=== PATIENT | male | born 1985 | race Caucasian/White ===

== ENCOUNTER 2018-10-25 23:13 | Emergency (ER) | payer SELFPAY ==
[~2018-10-25] VITALS: Ht 185.4 cm; Wt 81.6 kg
[2018-10-25 23:16] VITALS: BP 125/86
--- NOTE | 2018-10-25 23:17 | NUR ---
PT SHAWN ALS. TAKEN TO BED 10
--- NOTE | 2018-10-25 23:34 | NUR ---
PT MOVED TO [facility] TO WAIT FOR AVAIABLE BED. PT UNCOOPERATIVE, REFUSING TO ANSWER QUESTIONS. PT REMOVING LEADS AND MONITORING EQUIPMENT. PT SAT UP FROM BED AND STOOD INTO W/C. PT REQUESTING WE CALL [facility] TO PICK HIM UP. FAMILY CALLED TO CHECK ON PATIENT AND LEFT PHONE NUMBERS TO CALL FOR WHEN PT IS DISCHARGED. DR. VELEZ MADE AWARE.
--- NOTE | 2018-10-25 23:46 | NUR ---
PT TAKEN TO CHAIR E AREA. PT SITTING IN W/C
--- NOTE | 2018-10-25 23:51 | NUR ---
SPOKE TO PATIENT'S UNCLE. HE WILL BE ON HIS WAY TO PICK HIM UP. DR. VELEZ MADE AWARE.
--- NOTE | 2018-10-26 00:02 | NUR ---
Dr. Tobar evaluating patient at bedside.
[2018-10-26 00:08] VITALS: BP 125/86
--- NOTE | 2018-10-26 00:08 | NUR ---
Patient discharged with v/s stable. Written and verbal after care instructions given and explained. Patient verbalized understanding. Patient w/c assisted to car driven by uncle. All questions addressed prior to discharge. Advised to follow up with PMD.
== END 2018-10-26 00:08 | disposition home or self-care (01) ==
LOC: MED 23:13
DX: F10.129 Alcohol abuse with intoxication, unspecified (principal)
CPT/HCPCS: 99281